=== PATIENT | male | born 1935 | race Caucasian/White ===

== ENCOUNTER → 2017-03-13 | Day surgery (SDC) | payer MEDICARE ==
[~2017-03-13] MED LIST: ALBU2.5V14 NEB; ALPR1TAB6 PO; CRESTOR20 MG PO; ERGO500012 PO; FLUT16SP NS; FURO40TA4 PO; HYDROmorphone 2 MG/ML VIAL IV PRN; INSU100I27 SQ; INSU100V31 SQ; ISOS60TA2 PO; IV RINGERS,LACTATED 1000ML 1,000 ML IV SCH; LEVO112T4 PO; LIDOCAINE 1% 1 ML SYRINGE. ID PRN; LIPA1CAP36 PO; MEMA10TA PO; METO25TA4 PO; MONT10TA6 PO; MORPHINE SULFATE 2 MG/ML DISP.SYRIN. IV PRN; ONDANSETRON PF 4 MG/2 ML VIAL. IV PRN; OXYC1TAB9 PO; PREG50CA PO; PROCHLORPERAZINE 10 MG/2 ML VIAL. IV PRN; PROPOFOL 20 ML IV ONE; SENN8.6T99 PO; SERT100T PO; TAMS0.4C2 PO; fentaNYL PF VIAL 100 MCG/2 ML VIAL IV PRN
[2017-03-13 14:00] VITALS: BP 121/70
== END | disposition home or self-care (01) ==
LOC: ENDOS 12:26
PROVIDERS: ATTEND Internal Medicine Gastroenterology
DX: K29.50 Unspecified chronic gastritis without bleeding (principal); E11.9 Type 2 diabetes mellitus without complications; F17.200 Nicotine dependence, unspecified, uncomplicated; F32.9 Major depressive disorder, single episode, unspecified; E78.00 Pure hypercholesterolemia, unspecified; E03.9 Hypothyroidism, unspecified; Z85.3 Personal history of malignant neoplasm of breast; Z72.89 Other problems related to lifestyle
CPT/HCPCS: 43235; 82947; J2704